=== PATIENT | female | born 2005 | race Caucasian/White ===

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

== ENCOUNTER 2025-03-13 21:32 | Emergency (ER) | payer MEDICAID, SELFPAY ==
--- OUTSIDE RECORDS SUMMARY | 2025-03-13 21:35 | XMS_ITS | Clinical Summary ---
Author Organization [facility] Address [address] [place] [address] Care Team Providers Care Conveyor Belt Repairer Name Role Phone Ruthy Galeana MD Primary Care Provider Allergies No known active allergies Medications fexofenadine (EMELY) 30 mg Tablet Take 30 mg by mouth 2 times daily. Active Active Problems Problem Noted Date Diagnosed Date Asthma Family History Medical History Relation Name Comments Healthy Father Other Maternal Grandfather obesity Asthma Maternal Grandmother Healthy Mother Other Paternal Grandfather unknown Healthy Paternal Grandmother Breast Cancer Neg Hx Colon Cancer Neg Hx Relation Name Status Comments Father Maternal Grandfather Maternal Grandmother Mother Paternal Grandfather Paternal Grandmother Social History Tobacco Use Types Packs/Day Years Used Date Smoking Tobacco: Never Smokeless Tobacco: Never Alcohol Use Standard Drinks/Week Comments No 0 (1 standard drink = 0.6 oz pur e alcohol) Comments No Sex and Gender Information Value Date Recorded Sex Assigned at Not on file Legal Sex Female 11:12 AM CDT Gender Identity Not on file Sexual Orientation Not on file Occupation Industry Job Start Date Job End Date Not on file Not on file Not on file Not on file Last Filed Vital Signs Vital Sign Reading Time Taken Comments Blood Pressure 82/58 12/04/2020 4:33 PM CDT Pulse 103 12/04/2020 4:33 PM CDT Temperature 36.9 C (98.4 F) 12/04/2020 4:33 PM CDT Respiratory Rate 20 02/28/2015 3:58 PM CDT Oxygen Saturation 97% 12/04/2020 4:33 PM CDT Inhaled Oxygen Concentration - - Weight 59 kg (130 lb) 12/04/2020 4:33 PM CDT Height 172.7 cm (5' 8 ) 12/04/2020 4:33 PM CDT Body Mass Index 19.77 12/04/2020 4:33 PM CDT Plan of Treatment Health Maintenance Due Date Last Done Comments CHLAMYDIA SCREENING (ANNUAL) 11-24 YEARS 01/18/2015 HPV VACCINES (1 - 3-dose series) 01/18/2019 DTAP/TDAP/TD VACCINES (1 - Tdap) 01/18/2023 HEPATITIS B VACCINES (1 of 3 - 19+ 3-dose series) 12/23 CERVICAL CANCER SCREENING 01/18/2025 HPV/Cotest (21-29) 01/18/2025 PAP SMEAR 01/18/2025 INFLUENZA VACCINE (#1) 2025 Insurance [facility] Care Teams Conveyor Belt Repairer Relationship Specialty Start Date End Date Ruthy Galeana MD [address] [place] [phone] PCP - General Pediatrics 02/09/14
--- OUTSIDE RECORDS SUMMARY | 2025-03-13 21:35 | XMS_ITS | Encounter Summary ---
Author Organization [facility] Address [address] [place] [address] Care Team Providers Care Vacuum Technician Name Role Phone Ruthy Galeana MD Primary Care Provider Reason for Referral * Outpatient Services (Routine) - Closed Specialty Diagnoses / Procedures Referred By [facility] Referred To Contact Radiology Diagnoses Knee strain, right, initial encounter Procedures MRI KNEE WO CONTRAST RIGHT Vee Rothman FNP Phone: tel: fax: [facility] [address] [facility] [address] [place] [address] Phone: tel: fax: Referral ID Status Reason Start Date Expiration Date V isits Requested Visits Authorized [id number] Closed [facility] View CTS to Schedule (SGF) 11/01/2016 11/30/2016 1 1 Encounter Details Date Type Department Care Team ([facility] st Contact Info) Description 11/01/2016 Ancillary Orders [facility] Centralized Scheduling [address] [facility] [address] [place] [address] Vee Rothman FNP [address] [facility] [address] [place] [address] Knee strain, right, initial encounter Social History Tobacco Use Types Packs/Day Years [...] file Not on file Not on file documented as of this encounter Plan of Treatment Not on file documented as of this encounter Results * MRI KNEE WO CONTRAST RIGHT (11/07/2016 3:41 PM CDT) Anatomical Region Laterality Modality Lower Extremity Magnetic Resonan ce 11/07/2016 3:41 PM CDT Impressions 11/07/2016 4:02 PM CDT IMPRESSION: Please see below. Exam: MRI KNEE WO CONTRAST RIGHT Date/Time of Exam: 11/07/2016 3:41 PM Reason For Exam: Knee strain, right, initial encounter. Technique: MRI of the right knee was performed without the administration of intravenous contrast. Findings: The ACL and the PCL are intact. The quadriceps and the patellar tendon are intact. Medial collateral ligament and the posterior lateral corner ligaments are intact. No osteochondral lesion or bony contusion is identified. No linear tear of the medial or lateral meniscus. A physiologic amount of fluid is noted in the knee joint. No osteochondral defect in the patellofemoral compartment is identified. No Garcia's cyst. IMPRESSION: 1. Unremarkable exam. [id number] Narrative Procedure Note Obdulia Iyer MD - 11/07/2016 IMPRESSION IMPRESSION: Please see below. Exam: MRI KNEE WO CONTRAST RIGHT Date/Time of Exam: 11/07/2016 3:41 PM Reason For Exam: Knee strain, right, initial encounter. Technique: MRI of the right knee was performed without the administration of intravenous contrast. Findings: The ACL and the PCL are intact. The quadriceps and the patellar tendon are intact. Medial collateral ligament and the posterior lateral corner ligaments are intact. No osteochondral lesion or bony contusion is identified. No linear tear of the medial or lateral meniscus. A physiologic amount of fluid is noted in the knee joint. No osteochondral defect in the patellofemoral compartment is identified. No Garcia's cyst. IMPRESSION: 1. Unremarkable exam. [id number] Vee Rothman NATURAL DEVELOPER MR ORDERABLES Fin al Result documented in this encounter Visit Diagnoses Diagnosis Knee strain, right, initial encounter Knee strain, right, initial encounter documented in this encounter Care Teams Vacuum Technician Relationship Specialty Start Date End Date Ruthy Galeana MD [address] [place] [phone] PCP - General Pediatrics 02/09/14 documented as of this encounter
[2025-03-13 21:41] VITALS: BP 112/77; PULSE 112; RESP 16; TEMP 36.9; O2SAT 97; BMI 24.5
--- NOTE | 2025-03-13 23:19 | XRR_ITS ---
PROCEDURE INFORMATION: Exam: XR Right Wrist Exam date and time: 03/13/2025 11:25 PM Age: 20 years old Clinical indication: Pain; Wrist; Right; Additional info: Trauma TECHNIQUE: Imaging protocol: Radiologic exam of the right wrist. Views: 3 or more views. COMPARISON: No relevant prior studies available. FINDINGS: Bones/joints: No acute fracture or dislocation is identified. Carpal bones appear intact and normally configured. Soft tissues: Unremarkable. XR/XR wrist RT min 3V* [id number] IMPRESSION: No acute findings.
[2025-03-14 02:40] VITALS: PULSE 87; O2SAT 100
[2025-03-14 03:07] VITALS: BP 118/71; PULSE 95; O2SAT 100
--- NOTE | 2025-03-14 04:35 | ED_ITS ---
HPI - Extremity Problem General: Chief complaint: Extremity Injury, Upper Stated complaint: left wrist injury Time Seen by Provider: 03/14/25 02:42 History of Present Illness: 20-year-old female with history of PTSD, major depressive disorder, and anxiety presents after striking the dorsal aspect of her right wrist on a plastic toilet-paper dispenser earlier today. Immediate pain and swelling ensued; pain rated 7/10 and worsens with wrist extension or weight bearing. She is right-hand dominant. No prior wrist injury, splinting, or analgesic use prior to arrival. Denies numbness, tingling, weakness, fever, or open wound. Wrist radiographs obtained in the ED reportedly showed no fracture. Emotional state calm but concerned about function; declined previous medications today and has waited several hours for evaluation. Related Data Home Medications ?Medication ?Instructions ?Recorded ?Confirmed medroxyprogesterone 150 mg/mL mg IM 02/03/23 01/15/25 intramuscular suspension (Depo-Provera) Previous Rx's ?Medication ?Instructions ?Recorded duloxetine 30 mg capsule,delayed 30 mg PO DAILY #30 ca ps 01/15/25 release (Cymbalta) Allergies Allergy/AdvReac Type Severity Reaction Status Date / Time No Known Allergies Allergy Verified 01/15/25 13:19 [facility] ED PFSH: Medical History (Updated 03/14/25 @ 02:58 by Ravindra Salazar MD) PTSD (post-traumatic stress disorder) Nausea Psychiatric care MDD (major depressive disorder) Social anxiety disorder Generalized anxiety disorder Social History Smoking and tobacco/nicotine status: never used tobacco/nicotine Second hand smoke exposure: No Current occupation: no job Current gender identity: Female Physical Exam Narrative: EXAM NARRATIVE: Extremities: Bilaterally prominent ulnar tuberosities; right wrist swollen and tender over ulnar styloid. MSK: Right wrist full flexion; extension limited by ~10? due to pain; no weakness. Skin: No ecchymosis, abrasion, warmth, or erythema over wrist. Neuro: Sensation intact; no paresthesia. Course Vital Signs: Vital signs: Vital Signs Temperature 98.4 F 03/13/25 21:41 Pulse Rate 95 03/14/25 03:07 Respiratory Rate 16 03/13/25 21:41 Blood Pressure 118/71 03/14/25 03:07 Pulse Oximetry 100 03/14/25 03:07 Oxygen Delivery Me thod Room Air 03/14/25 02:40 MDM - Extremity (Nontraumatic) Medical Decision Making The patient has acute right wrist pain and swelling after direct impact; X-ray negative for fracture. PE shows focal swelling, 10? loss of extension, intact neurovascular exam. Imaging: ED wrist X-ray shows no fracture, consistent with soft-tissue injury. Bone contusion is most likely given blunt trauma and normal radiographs; tendon strain also considered but less likely without weakness. Fracture effectively ruled out by imaging. Will treat conservatively: administer ibuprofen, acetaminophen, ice in ED; offer short course tramadol PRN for home use; no splint recommended. Discharge with return precautions if pain worsens or function declines. Lab Data Radiology Impressions Wrist X-Ray 03/13/25 23:19 IMPRESSION: No acute findings. All radiology interpretation(s) finalized by discharge Discharge Plan Discharge Patient Disposition: Home Clinical Impression: Contusion of right wrist Condition: Stable Prescriptions: No Action medroxyprogesterone [Depo-Provera] 150 mg/mL suspension IM duloxetine [Cymbalta] 30 mg capsule,delayed release(DR/EC) 30 mg PO DAILY Qty: 30 2RF Discharge Orders: Discharge ED (Routine); Ordered 03/14/25 Ordered By: Ravindra Salazar Referrals: Charla Pittman [Primary Care Provider, Family Practice] Discharge Diet: Usual diet Discharge Activity: Increase activity as tolerated Patient Instructions: Bone Bruise (ED), Patient Portal & Joseph Instructions Print Language: Monegasque Coding Level of Care Code ED Folding Rules Printing Machine Operator for Graeme Posey
== END 2025-03-14 03:11 | disposition home or self-care (01) ==
PROVIDERS: Emergency Provider Student in an Organized Health Care Education/Training Program; PCP Registered Nurse
DX: S60.211A Contusion of right wrist, initial encounter (principal); W22.8XXA Striking against or struck by other objects, initial encounter
CPT/HCPCS: 73110; 99283; J9999